=== PATIENT | male | born 1950 ===

== ENCOUNTER 2017-01-29 10:10 | Emergency (ER) | payer MEDICARE ==
[2017-01-29 10:29] VITALS: RESP 18; TEMP 98.5
[2017-01-29] MEDS ORDERED: Sodium Chloride 0.9% 500 ML IV STA (10:38)
--- NOTE | 2017-01-29 10:47 | ED PDOC ---
Arrival/HPI - General Chief Complaint: Bite Time Seen by Provider: 01/29/17 10:37 Past Medical History - Cardiac Hx Hypertension: Yes Other/Comment: value repairx7 yrs ago - Pulmonary Hx Pulmonary Embolism: Yes (7 yrs ago) - Neurological Hx Neurological Disorder: No - HEENT Hx HEENT Disorder: No - Renal Hx Renal Disorder: No - Endocrine/Metabolic Hx Endocrine Disorders: No - Hematological/Oncological Hx Blood Disorders: No - Integumentary Hx Dermatological Disorder: No - Gastrointestinal Hx Gastrointestinal Disorders: No - Genitourinary/Gynecological Hx Genitourinary Disorders: No - Psychiatric Hx Substance Use: No - Surgical History Other/Comment: back, heart surgery - Anesthesia Hx Anesthesia: Yes (need special anesthesia) Family/Social History Smoking Status: Never Smoked Hx Alcohol Use: No Hx Substance Use: No Allergies/Home Meds Allergies/Adverse Reactions: Allergies No Known Allergies Allergy (Verified 01/29/17 10:34) Physical Exam Vital Signs Temp Pulse Resp BP Pulse Ox 01/29/17 10:19 98.5 F 90 18 131/75 98 Medical Decision Making - Medication Orders Current Medication Orders: Sodium Chloride (Sodium Chloride 0.9%) 500 mls @ 1,000 mls/hr IV .Q30M STA Stop: 01/29/17 11:07 Disposition/Present on Arrival - Present on Arrival History of DVT/PE: Yes History of Uncontrolled Diabetes: No Urinary Catheter: No History of Decub. Ulcer: No History Surgical Site Infection Following: None - Disposition Forms: [employer] (Portuguese)
--- NOTE | 2017-01-29 11:06 | ED PDOC ---
Arrival/HPI - General Chief Complaint: Bite Time Seen by Provider: 01/29/17 10:37 Historian: Patient - History of Present Illness Narrative History of Present Illness (Text): 01/29/17 11:01 66 yo male w/PMHx of HTN, PE, come in for evaluation of painful mass over back of neck gradually developed for past 3 days. Pt sts, " always had small swelling there and not might have been bitten by insect". Pt sts, noted some burning sensation over mass with tingling sensation. Pt admits, one time subjective fever. Otherwise, denies headache, dizziness, visual changes, focal deficits, drooling, throat pain or swelling, CP, SOB, wheezing, abd. pain, N/V , denies weakness, sensory or vascular deficits to B/L UEs. Ambulate to Ed for evaluation, not in any apparent distress. Past Medical History - Provider Review Nursing Documentation Reviewed: Yes - Travel History Have you recently traveled outside [place] w/in the past 3 mons?: No - Tetanus Immunization Tetanus Immunization: Unknown - Cardiac Hx Hypertension: Yes Other/Comment: value repairx7 yrs ago - Pulmonary Hx Pulmonary Embolism: Yes (7 yrs ago) - Neurological Hx Neurological Disorder: No - HEENT Hx HEENT Disorder: No - Renal Hx Renal Disorder: No - Endocrine/Metabolic Hx Endocrine Disorders: No - Hematological/Oncological Hx Blood Disorders: No - Integumentary Hx Dermatological Disorder: No - Gastrointestinal Hx Gastrointestinal Disorders: No - Genitourinary/Gynecological Hx Genitourinary Disorders: No - Psychiatric Hx Substance Use: No - Surgical History Other/Comment: back, heart surgery - Anesthesia Hx Anesthesia: Yes (need special anesthesia) Family/Social History - Physician Review Nursing Documentation Reviewed: Yes Family/Social History: No Known Family HX Smoking Status: Never Smoked Hx Alcohol Use: No Hx Substance Use: No Allergies/Home Meds Allergies/Adverse Reactions: Allergies No Known Allergies Allergy (Verified 01/29/17 10:34) Home Medications: Home Meds Medication Instructions Recorded Confirmed Digoxin [Digoxin] 125 mcg PO DAILY 01/29/17 01/29/17 Metoprolol Succinate [Toprol XL] 50 mg PO BID 01/29/17 01/29/17 Simvastatin [Zocor] 40 mg PO DAILY 01/29/17 01/29/17 Review of Systems - Review of Systems Constitutional: Fevers (subjective) Eyes: Normal ENT: Normal Respiratory: Normal Cardiovascular: Normal Gastrointestinal: Normal Genitourinary Male: Normal Musculoskeletal: Normal Skin: Skin Lesions Neurological: Normal Endocrine: Normal Hemo/Lymphatic: Normal Psychiatric: Normal Physical Exam Vital Signs Reviewed: Yes Vital Signs Temp Pulse Resp BP Pulse Ox 01/29/17 12:13 89 18 130/82 96 01/29/17 10:19 98.5 F 90 18 131/75 98 Temperature: Afebrile Blood Pressure: Normal Pulse: Regular Respiratory Rate: Normal Appearance: Positive for: Well-Appearing, Non-Toxic, Comfortable Pain Distress: Moderate Mental Status: Positive for: Alert and Oriented X 3 - Systems Exam Conjunctiva: Present: Normal Ears: Present: Normal Canal Mouth: Present: Moist Mucous Membranes Neck: Present: Normal Range of Motion, Trachea Midline, Other ((+) 3cm tender mass over posterior neck at base of scalp, erythema and flactulance. NO proximal streaking.). No: Meningeal Signs, MIDLINE TENDERNESS, JVD, Lymphadenopathy Respiratory/Chest: Present: Clear to Auscultation, Good Air Exchange. No: Respiratory Distress, Accessory Muscle Use Cardiovascular: Present: Regular Rate and Rhythm, Normal S1, S2. No: Murmurs Abdomen: Present: Normal Bowel Sounds. No: Tenderness, Distention, Peritoneal Signs Upper Extremity: Present: Normal ROM, NORMAL PULSES, Neurovascularly Intact. No : Deformity Lower Extremity: Present: NORMAL PULSES, Normal ROM, Neurovascularly Intact. No : Edema, Deformity Neurological: Present: GCS=15, Speech Normal Skin: Present: Warm, Dry, Normal Color. No: Rashes Psychiatric: Present: Alert, Oriented x 3, Normal Insight, Normal Concentration Medical Decision Making ED Course and Treatment: 01/29/17 On re-evaluation, pt is afebrile, hemodynamicaly stable. Non-toxic. Ambulatory in ED with stable gait. Head: AT/NC Neck: Supple, (-) JVD, (-) carotid bruits Neurologicaly intact. SKin: exam c/w posterior neck at the base of skull cysr s/p I&D, performed by resident. Pt tolerate well. Blood work review and appears normal . Wound cx- pending. Pt advised on course of ds. ref. to f/u with ED in 2 days for re-evaluation. Return to ED if any worsening or new changes. Pt understand and agrees with discharges. - Lab Interpretations Lab Results: 01/29/17 10:55 01/29/17 10:55 Lab Results 01/29/17 11:00: Urine Color Yellow, Urine Appearance Clear, Urine pH 6.0, Ur Specific [place] 1.015, Urine Protein Negative, Urine Glucose (UA) Negative, Urine Ketones Negative, Urine Blood Negative, Urine Nitrate Negative, Urine Bilirubin Negative, Urine Urobilinogen 0.2, Ur Leukocyte Esterase Negative 01/29/17 10:55: Sodium 139, Potassium 4.1, Chloride 105, Carbon Dioxide 23, Anion Gap 15, BUN 13, Creatinine 0.9, Est GFR ( Amer) > 60, Est GFR (Non- Af Amer) > 60, Random Glucose 202 H, Calcium 8.9, Total Bilirubin 1.0, AST 43, ALT 40, Alkaline Phosphatase 98, Total Protein 7.7, Albumin 4.3, Globulin 3.4, Albumin/Globulin Ratio 1.2 01/29/17 10:55: WBC 8.9, RBC 4.94, Hgb 15.7, Hct 45.4, MCV 91.9, MCH 31.8, MCHC 34.6, RDW 14.1, Plt Count 307, MPV 9.7, Gran % 55.3, Lymph % (Auto) 36.1 H, [place] % (Auto) 5.4, Eos % (Auto) 2.9, Baso % (Auto) 0.3, Gran # 4.93, Lymph # 3.2 , [place] # 0.5, Eos # 0.3, Baso # 0.03 I have reviewed the lab results: Yes Interpretation: All labs normal - Medication Orders Current Medication Orders: Discontinued Medications Sodium Chloride (Sodium Chloride 0.9%) 500 mls @ 1,000 mls/hr IV .Q30M STA Stop: 01/29/17 11:07 Last Admin: 01/29/17 11:13 Dose: 1,000 mls/hr Lidocaine HCl (Lidocaine 2% 20ml Vial) 0 ml IJ ONCE STA Stop: 01/29/17 11:12 Disposition/Present on Arrival - Present on Arrival Any Indicators Present on Arrival: No History of DVT/PE: Yes History of Uncontrolled Diabetes: No Urinary Catheter: No History of Decub. Ulcer: No History Surgical Site Infection Following: None - Disposition Have Diagnosis and Disposition been Completed?: Yes Diagnosis: Abscess Disposition: HOME/ ROUTINE Disposition Time: 12:13 Patient Plan: Discharge Condition: GOOD Discharge Instructions (ExitCare): Abscess Incision and Drainage (ED) Additional Instructions: 1. Come back to the ER in 2 days for wound check 2. Follow up with your Primary Care Physician within 3 days. 3. Take Antibiotics as directed to completion 4. Use OTC Ibuprofen as needed for pain control 5. You may shower, No bathing. Keep area clean and dry. Keep packing in place until it falls out. 6. Keep Abscess area clean and dry with dry gauze as needed 7. Return to the ER with any concerning symptoms Prescriptions: Doxycycline Hyclate 100 mg PO BID #14 cap Referrals: PCP,NO [Primary Care Provider] - Follow up with primary Forms: [facility] (Greek) - Incision & Drainage Of Abscess Anesthesia: Lidocaine 2% Prep Used: Betadine Procedure: Incised W/Scalpel Blade#:, Drained Pus (5ml), Irrigated Cavity W/ Saline (ns), Probed To Break Up Loculations, Packed W/Gauze
[2017-01-29] MEDS ORDERED: Lidocaine 2% Inj (20ml) IJ STA (11:11)
[2017-01-29 11:19] LABS: BASO # 0.03 K/mm3 (0.0-2.0); BASO % 0.3 % (0.0-3.0); EOS # 0.3 (0.0-0.7); EOS % 2.9 % (1.5-5.0); GRAN # 4.93 (1.4-6.5); GRAN % 55.3 % (50.0-68.0); HEMOGLOBIN 15.7 g/dL (14.0-18.0); LYMPH # 3.2 (1.2-3.4); LYMPH % 36.1 % (22.0-35.0); MEAN CELL VOLUME 91.9 fl (80.0-105.0); MEAN CORPUSCULAR HEMOGLOBIN 31.8 pg (25.0-35.0); MEAN CORPUSCULAR HGB CONC 34.6 g/dl (31.0-37.0); MEAN PLATELET VOLUME 9.7 fl (7.0-11.0); MONO # 0.5 (0.1-0.6); MONO % 5.4 % (1.0-6.0); PLATELET COUNT 307 10^3/uL (120.0-450.0); RBC 4.94 10^6/uL (3.5-6.1); RED CELL DISTRIBUTION WIDTH 14.1 % (11.5-14.5); WHITE BLOOD COUNT 8.9 10^3/ul (4.5-11.0)
[2017-01-29 11:19] LABS: URINE BILIRUBIN NEGATIVE (NEGATIVE); URINE BLOOD NEGATIVE (NEGATIVE); URINE GLUCOSE (UA) NEGATIVE (NEGATIVE); URINE LEUKOCYTE ESTERASE NEGATIVE Leu/uL (NEGATIVE); URINE NITRATE NEGATIVE (NEGATIVE); URINE PROTEIN NEGATIVE mg/dL (<30 mg/dL); URINE UROBILINOGEN 0.2 E.U./dL (<1 E.U./dL)
[2017-01-29 11:20] LABS: URINE APPEARANCE CLEAR (CLEAR); URINE COLOR YELLOW (YELLOW)
[2017-01-29 11:29] LABS: ALB/GLOB RATIO 1.2 (1.1-1.8); ALBUMIN 4.3 g/dL (3.0-4.8); ALT/SGPT 40 U/L (7-56); AST/SGOT 43 U/L (15-59); BLOOD UREA NITROGEN 13 mg/dL (7-21); CALCIUM 8.9 mg/dL (8.4-10.5); GFR AFRICAN-AMERICAN > 60; GFR NON-AFRICAN AMERICAN > 60
[2017-01-29 12:14] VITALS: BP 130/82; PULSE 89; O2SAT 96
== END 2017-01-29 12:17 | disposition home or self-care (01) ==
LOC: ED 10:10 → MERGE 10:10 → ED 12:17
DX: L02.11 Cutaneous abscess of neck (principal)
CPT/HCPCS: 10060; 80053; 81003; 85025; 87040; 87070; 99284; J7040

== ENCOUNTER 2017-01-31 12:38 | Emergency (ER) | payer MEDICARE ==
[2017-01-31 12:50] VITALS: BMI 29.1
[2017-01-31 12:53] VITALS: BP 133/89; PULSE 92; RESP 18; TEMP 97.9; O2SAT 97
--- NOTE | 2017-01-31 13:02 | ED PDOC ---
Arrival/HPI - General Chief Complaint: Wound Check Time Seen by Provider: 01/31/17 12:58 - History of Present Illness Narrative History of Present Illness (Text): 01/31/17 13:00 66yo male, in the ER after an I&D 2 days ago for wound check. Pt states he has no pain, minimal drainage, no f/c, no [place]. States he is taking the prescribed abx as well. No other complaints. Past Medical History - Provider Review Nursing Documentation Reviewed: Yes - Infectious Disease Hx of Infectious Diseases: None - Tetanus Immunization Tetanus Immunization: Unknown - Cardiac Hx Hypertension: Yes Other/Comment: value repairx7 yrs ago - Pulmonary Hx Pulmonary Embolism: Yes (7 yrs ago) - Neurological Hx Neurological Disorder: No - HEENT Hx HEENT Disorder: No - Renal Hx Renal Disorder: No - Endocrine/Metabolic Hx Endocrine Disorders: No - Hematological/Oncological Hx Blood Disorders: No - Integumentary Hx Dermatological Disorder: No - Gastrointestinal Hx Gastrointestinal Disorders: No - Genitourinary/Gynecological Hx Genitourinary Disorders: No - Psychiatric Hx Substance Use: No - Surgical History Other/Comment: back, heart surgery - Anesthesia Hx Anesthesia: Yes (need special anesthesia) Family/Social History Family/Social History: Unknown Family HX Smoking Status: Never Smoked Hx Alcohol Use: No Hx Substance Use: No Allergies/Home Meds Allergies/Adverse Reactions: Allergies No Known Allergies Allergy (Verified 01/29/17 10:34) Home Medications: Home Meds Medication Instructions Recorded Confirmed Digoxin [Digoxin] 125 mcg PO DAILY 01/29/17 01/31/17 Metoprolol Succinate [Toprol XL] 50 mg PO BID 01/29/17 01/31/17 Simvastatin [Zocor] 40 mg PO DAILY 01/29/17 01/31/17 Review of Systems - Physician Review All systems were reviewed & negative as marked: Yes - Review of Systems Skin: Other (wound check) Physical Exam Vital Signs Reviewed: Yes Vital Signs Temp Pulse Resp BP Pulse Ox 01/31/17 12:52 97.9 F 92 H 18 133/89 97 Temperature: Afebrile Blood Pressure: Normal Pulse: Regular Respiratory Rate: Normal Appearance: Positive for: Well-Appearing Pain Distress: None Mental Status: Positive for: Alert and Oriented X 3 - Systems Exam Skin: Present: Other (packing removed, clean dressing applied. No drainage. No erythema. No fluctuance. No tenderness. Well healing abscess. Posterior neck. ) Medical Decision Making ED Course and Treatment: 01/31/17 13:02 pt in the ER for packing removal and wound check packing removed no signs or symptoms of infection pt states he has f/u with PMD this upcoming Saturday Pt states he understands to return to the ER right away for new or worsening symptoms or for inability to f/u with PMD or specialist as instructed. Patient states that he fully agrees with and understands discharge instructions. States that he agrees with the plan and disposition. Verbalized and repeated discharge instructions and plan. I have given the patient opportunity to ask any additional questions. Disposition/Present on Arrival - Present on Arrival Any Indicators Present on Arrival: No History of DVT/PE: Yes History of Uncontrolled Diabetes: No Urinary Catheter: No History of Decub. Ulcer: No History Surgical Site Infection Following: None - Disposition Have Diagnosis and Disposition been Completed?: Yes Diagnosis: Wound check, abscess Disposition: HOME/ ROUTINE Disposition Time: 12:59 Patient Plan: Discharge Condition: GOOD Discharge Instructions (ExitCare): Abscess (ED) Additional Instructions: PLEASE CONTINUE TAKING THE ANTIBIOTICS FOLLOW UP WITH YOUR DOCTOR THIS UPCOMING SATURDAY SCHEDULED RETURN RIGHT AWAY FOR FEVERS, CHILLS, DRAINAGE, HEADACHE, PAIN, OR IF YOU CANNOT FOLLOW UP INSTRUCTED Forms: [employer] (German)
== END 2017-01-31 13:12 | disposition home or self-care (01) ==
LOC: ED 12:38
DX: Z51.89 Encounter for other specified aftercare (principal); L02.11 Cutaneous abscess of neck